=== PATIENT | female | born 1970 | race Caucasian/White ===

== ENCOUNTER 2025-03-06 07:59 | Outpatient (CLI) | payer BC ==
[2025-03-06] MEDS ORDERED: Sincalide 5 MCG VIAL ONE (09:36)
[2025-03-06] MEDS ORDERED: Bacteriostatic Normal Saline 30 ML VIAL ONE (09:37)
== END 2025-03-06 08:00 | disposition home or self-care (01) ==
LOC: NM 07:59
PROVIDERS: ATTEND Internal Medicine
DX: R10.84 Generalized abdominal pain (principal); R10.11 Right upper quadrant pain
CPT/HCPCS: 78227; A9537; J2805